=== PATIENT | female | born 1960 | race African-American/Black ===

== ENCOUNTER 2017-12-19 20:47 | Emergency (ER) | payer MEDICAID ==
[~2017-12-19] VITALS: Ht 162.6 cm; Wt 113.0 kg
[2017-12-19 20:58] VITALS: BP 153/79
== END 2017-12-20 00:30 | disposition home or self-care (01) ==
LOC: ER 21:46
DX: R05 Cough (principal); N28.9 Disorder of kidney and ureter, unspecified; E78.00 Pure hypercholesterolemia, unspecified; Z88.6 Allergy status to analgesic agent; Z90.710 Acquired absence of both cervix and uterus
CPT/HCPCS: 99283

== ENCOUNTER 2019-04-30 20:29 | Emergency (ER) | payer MEDICAID ==
[~2019-04-30] VITALS: Ht 162.6 cm; Wt 99.7 kg
[2019-04-30] MEDS ORDERED: IBUPROFEN 600MG TABLET PO STA (22:30)
[2019-04-30 22:40] LABS: CLARITY URINE CLEAR (CLEAR); COLOR URINE YELLOW (YELLOW); KETONES URINE NEGATIVE (NEGATIVE); LEUKOCYTE ESTERASE URINE NEGATIVE (NEGATIVE); NITRITE URINE NEGATIVE (NEGATIVE); OCCULT BLOOD URINE NEGATIVE (NEGATIVE); PH URINE 7.5 (4.5-8.0); PROTEIN URINE NEGATIVE (NEGATIVE); SPECIFIC GRAVITY URINE 1.003 (1.005-1.030); UROBILINOGEN URINE 0.2 E.U./dL (0.2-1.0)
[2019-04-30 23:30] LABS: BASOPHILS % 0.6 % (0.0-2.0); EOSINOPHILS % 2.5 % (0.0-5.0); HEMATOCRIT. 34.6 % (36.0-48.0); HEMOGLOBIN. 11.7 g/dL (12.0-16.0); LYMPHOCYTES % 32.3 % (20.0-50.0); MEAN CORPUSCULAR HEMOGLOBIN 31.8 pg (28.0-32.0); MEAN CORPUSCULAR VOLUME 94.1 fL (81.0-99.0); MEAN PLATELET VOLUME 9.2 fl (7.4-10.4); MONOCYTES % 4.1 % (2.0-8.0); NEUTROPHILS % 60.5 % (40.0-76.0); PLATELET 194 x1000/uL (130-400); RED BLOOD CELL COUNT 3.68 mill/uL (4.2-5.4)
[2019-04-30 23:37] LABS: CHLORIDE 111 mEq/L (98-107)
[2019-05-01 00:36] VITALS: BP 152/74
== END 2019-05-01 00:37 | disposition home or self-care (01) ==
LOC: ER 20:29
DX: R10.9 Unspecified abdominal pain (principal); E78.00 Pure hypercholesterolemia, unspecified; Z98.890 Other specified postprocedural states; Z88.5 Allergy status to narcotic agent
CPT/HCPCS: 36415; 74176; 99284

== ENCOUNTER 2022-10-22 19:21 | Emergency (ER) | payer MEDICAID ==
[~2022-10-22] VITALS: Ht 162.6 cm; Wt 110.1 kg
[2022-10-22] MEDS ORDERED: DEXAMETHASONE 10 MG/ML VIAL IV ONE (23:45)
[2022-10-22] MEDS ORDERED: IBUPROFEN 400MG TABLET PO ONE (23:45)
[2022-10-22] MEDS ORDERED: IBUP-2028 MT (23:57)
[2022-10-23 00:34] VITALS: BP 139/89
== END 2022-10-23 00:35 | disposition home or self-care (01) ==
LOC: ER 19:21
DX: J06.9 Acute upper respiratory infection, unspecified (principal); Z20.822 Contact with and (suspected) exposure to COVID-19; Z88.5 Allergy status to narcotic agent
CPT/HCPCS: 87426; 96374; 99283; J1100

== ENCOUNTER 2023-04-29 15:19 | Emergency (ER) | payer MEDICAID, OTHER ==
[~2023-04-29] VITALS: Ht 160 cm; Wt 111.4 kg
[~2023-04-29 15:19] MED LIST: IBUP-2028 MT
[2023-04-29 17:30] VITALS: BP 154/84
[2023-04-29] MEDS ORDERED: IBUPROFEN 400MG TABLET PO ONE (17:30)
[2023-04-29 19:28] LABS: BASOPHILS % 0.2 % (0.0-2.0); EOSINOPHILS % 2.6 % (0.0-5.0); HEMATOCRIT. 32.5 % (36.0-48.0); HEMOGLOBIN. 10.8 g/dL (12.0-16.0); LYMPHOCYTES % 21.7 % (20.0-50.0); MEAN CORPUSCULAR VOLUME 93.5 fL (81.0-99.0); MEAN PLATELET VOLUME 8.4 fl (7.4-10.4); MONOCYTES % 4.6 % (2.0-8.0); NEUTROPHILS % 70.9 % (40.0-76.0); PLATELET 254 x1000/uL (130-400); RED BLOOD CELL COUNT 3.47 mill/uL (4.2-5.4); RED CELL DISTRIBUTION WIDTH 14.3 % (11.6-14.6)
[2023-04-29 19:40] LABS: CHLORIDE 105 mEq/L (98-107)
[2023-04-29] MEDS ORDERED: POTASSIUM CHLORIDE 20MEQ TABLET SR PO ONE (20:15)
[2023-04-29] MEDS ORDERED: TOPUD MT (20:54)
== END 2023-04-29 21:18 | disposition home or self-care (01) ==
LOC: ER 15:19
DX: M25.561 Pain in right knee (principal); M79.89 Other specified soft tissue disorders; R60.9 Edema, unspecified; Z88.5 Allergy status to narcotic agent
CPT/HCPCS: 36415; 71045; 73560; 80053; 83880; 85025; 93970; 99285

== ENCOUNTER 2023-05-11 18:20 | Emergency (ER) | payer OTHER ==
[~2023-05-11] VITALS: Ht 162.6 cm; Wt 108.9 kg
[~2023-05-11 18:20] MED LIST changes: +TOPUD MT
[2023-05-11 18:52] VITALS: O2SAT 98
[2023-05-11] MEDS ORDERED: DICL100G32 TP (20:43)
[2023-05-11 21:30] VITALS: BP 145/82; PULSE 71; RESP 15; TEMP 98.3
== END 2023-05-11 21:36 | disposition home or self-care (01) ==
LOC: ER 18:20
DX: M25.561 Pain in right knee (principal); I10 Essential (primary) hypertension; Z90.710 Acquired absence of both cervix and uterus
CPT/HCPCS: 99281; 99283

== ENCOUNTER 2025-04-09 20:20 | Emergency (ER) | payer OTHER ==
[~2025-04-09] VITALS: Ht 165.1 cm; Wt 101.2 kg
[~2025-04-09 20:20] MED LIST changes: +DICL100G32 TP
[2025-04-09 20:33] VITALS: O2SAT 98
[2025-04-09] MEDS ORDERED: SULF1TAB48 MT (22:13)
[2025-04-09] MEDS ORDERED: CEPH500T MT (22:13)
[2025-04-09 22:35] VITALS: BP 163/67; PULSE 64; RESP 16; TEMP 36.8; O2SAT 98
== END 2025-04-09 22:49 | disposition home or self-care (01) ==
LOC: ER 20:20
DX: L03.115 Cellulitis of right lower limb (principal); Z88.5 Allergy status to narcotic agent; Z90.710 Acquired absence of both cervix and uterus
CPT/HCPCS: 93971; 99284